=== PATIENT | female | born 1960 | race Caucasian/White ===

== ENCOUNTER 2024-01-31 08:54 | Day surgery (SDC) | payer MEDICARE, BC ==
[2024-01-25 11:22] LABS: BASOPHILS % (AUTO) 0.5 % (0-1); EOSINOPHILS # (AUTO) 0.1 X10'3 (0-0.9); EOSINOPHILS % (AUTO) 2.4 % (0-6); LYMPHOCYTES # (AUTO) 1.8 X10'3 (1.1-4.8); LYMPHOCYTES % (AUTO) 29.5 % (21-51); MEAN CORPUSCULAR HEMOGLOBIN 29.1 PG (27.0-31.0); MEAN CORPUSCULAR HGB CONC 32.8 g/dL (33.0-36.5); MEAN CORPUSCULAR VOLUME 88.7 FL (78-98); MEAN PLATELET VOLUME 8.6 FL (7.4-10.4); MONOCYTES # (AUTO) 0.6 X10'3 (0-0.9); MONOCYTES % (AUTO) 9.6 % (2-12); NEUTROPHILS # (AUTO) 3.5 X10'3 (1.8-7.7); PRE OP HEMOGLOBIN 13.8 g/dL (12.0-16.0); PRE OP PLATELET COUNT 170 X10'3 (140-440); RED BLOOD COUNT 4.74 X10'6 (4.20-5.60)
[2024-01-25 11:32] LABS: ALBUMIN 3.7 G/DL (3.4-5.0); ALBUMIN/GLOBULIN RATIO 1.1 (1.1-1.5); ALKALINE PHOSPHATASE 74 IU/L (46-116); BLOOD UREA NITROGEN 10 MG/DL (7-18); BUN/CREATININE RATIO 14.5 (10.0-20.0); CALCIUM 8.7 MG/DL (8.5-10.1); CHLORIDE 107 MMOL/L (99-107); CREATININE 0.69 MG/DL (0.40-0.90); PRE OP ALT 30 U/L (30-65); PRE OP ANION GAP 5 (8-16); PRE OP AST 13 U/L (10-37); PRE OP BILIRUB, TOTAL 0.5 MG/DL (0.0-1.0); PRE OP GLUCOSE 95 MG/DL (70-104); PRE OP POTASSIUM 3.6 MMOL/L (3.4-5.1); PRE OP SODIUM 142 MMOL/L (135-145); TOTAL CARBON DIOXIDE 29.9 MMOL/L (24-32); TOTAL PROTEIN 7.2 G/DL (6.4-8.2); eGFR 85 ML/MIN
[2024-01-31] VITALS (7 sets, daily range): BP systolic 105–178; BP diastolic 65–80; PULSE 63–75; RESP 14–19; TEMP 98.4; O2SAT 96–99
[~2024-01-31] VITALS: Ht 162.6 cm; Wt 97.4 kg
[2024-01-31] MEDS: cefazolin 2gm/D5W 100mL 100 ML IV ONE (05:30)
[~2024-01-31 08:54] MED LIST: BUSP5TAB3 PO; DULA1.5P SQ; EZET10TA48 PO; LEVO75TA7 PO; OMEP20CA16 PO
[2024-01-31] MEDS: famotidine 20mg tablet PO ONE (09:40)
[2024-01-31] MEDS: ringers solution, lacted 1,000 ML IV SCH (09:41)
[2024-01-31] MEDS ORDERED: ondansetron/PF 4mg/2ml inj IV PRN (12:20)
[2024-01-31] MEDS ORDERED: fentaNYL/PF 50MCG/1 ML 2ML syringe IV PRN ×2 (12:20)
[2024-01-31] MEDS ORDERED: morphine 4 MG/ML inj SYRINge IV PRN (12:20)
[2024-01-31] MEDS ORDERED: ringers solution, lacted 1,000 ML IV SCH (12:20)
[2024-01-31] MEDS ORDERED: hydrALAZINE 20mg/ml inj. IV PRN (12:20)
[2024-01-31] MEDS ORDERED: labetalol 20mg/4ml (5mg/ml) syringe IV PRN (12:20)
[2024-01-31] MEDS ORDERED: morphine 2 MG/ML inj. syringe IV PRN (12:20)
[2024-01-31] MEDS ORDERED: LIDOcaine 2% (20mg/ml) 5ml vial ONE ×2 (12:25)
[2024-01-31] MEDS ORDERED: dexamethasone sod phosphate 4mg/ml inj. ONE (12:25)
[2024-01-31] MEDS ORDERED: propofol inj 20 ML IV ONE (12:25)
[2024-01-31] MEDS ORDERED: fentaNYL/PF 50MCG/1 ML 2ML syringe ONE (12:25)
[2024-01-31] MEDS ORDERED: ondansetron/PF 4mg/2ml inj ONE (12:25)
[2024-01-31] MEDS ORDERED: sevoflurane 250ml liquid IH ONE (12:45)
[2024-01-31] MEDS: BUPIVAcaine 2.5mg/ml inj 50ml vial (contains preservative) ONE (13:05)
[2024-01-31] MEDS: methylene blue (5mg/ml) 50mg/10ml ampul IV ONE (13:05)
[2024-01-31] MEDS: LIDOcaine 1% (10mg/ml)w/preservative inj. 20ml MDV ONE (13:05)
[2024-01-31] MEDS ORDERED: acetaminophen 1,000mg/100ml IV 100 ML IV ONE (13:08)
== END 2024-01-31 14:50 | disposition home or self-care (01) ==
LOC: PAS 08:54
PROVIDERS: ATTEND Surgery
DX: C43.71 Malignant melanoma of right lower limb, including hip (principal); R59.0 Localized enlarged lymph nodes; E11.9 Type 2 diabetes mellitus without complications; E66.9 Obesity, unspecified; E03.9 Hypothyroidism, unspecified; F41.9 Anxiety disorder, unspecified; Z80.1 Family history of malignant neoplasm of trachea, bronchus and lung; F32.A Depression, unspecified; I25.2 Old myocardial infarction; Z79.890 Hormone replacement therapy; Z79.899 Other long term (current) drug therapy; Z68.36 Body mass index [BMI] 36.0-36.9, adult; Z83.3 Family history of diabetes mellitus; Z80.6 Family history of leukemia; Z82.61 Family history of arthritis; Z82.49 Family history of ischemic heart disease and other diseases of the circulatory system
CPT/HCPCS: 36415; 38531; 38900; 80053; 82948; 85025; 93005; A4215; A4618; A7000; J0131; J0690; J1100; J2001; J2405; J2704; J3010; J3490; J7030; J7120; Q9968; Z7506; Z7512; Z7610